=== PATIENT | female | born 1985 | race Caucasian/White ===

== ENCOUNTER 2016-12-13 00:19 | Emergency (ER) | payer OTHER ==
[~2016-12-13 00:19] MED LIST: "\\\"MUSCLE RELAXER\\\""; AMOXICILLIN PO; BIRTH CONTROL PILL PO; TYLENOL #3 PO
== END 2016-12-13 00:22 | disposition home or self-care (01) ==
LOC: SED 00:19
DX: B02.9 Zoster without complications (principal); F17.210 Nicotine dependence, cigarettes, uncomplicated
CPT/HCPCS: 99282